=== PATIENT | female | born 1995 | race Caucasian/White ===

== ENCOUNTER 2019-06-26 13:58 | Emergency (ER) | payer OTHER ==
[~2019-06-26] VITALS: Ht 162.6 cm; Wt 69.0 kg
[2019-06-26 14:09] VITALS: BP 146/99
[2019-06-26] MEDS ORDERED: magnesium hydroxide 30ml (MOM) UD suspension PO ONE (14:50)
[2019-06-26] MEDS ORDERED: ondansetron 4mg rapidly disintigrating tab PO ONE (15:00)
[2019-06-26] MEDS ORDERED: MAGN400O6 PO (15:52)
== END 2019-06-26 16:34 | disposition home or self-care (01) ==
LOC: ER 13:59
DX: O99.612 Diseases of the digestive system complicating pregnancy, second trimester (principal); K59.00 Constipation, unspecified; O26.892 Other specified pregnancy related conditions, second trimester; R10.32 Left lower quadrant pain; Z3A.19 19 weeks gestation of pregnancy
CPT/HCPCS: 99284